=== PATIENT | male | born 1980 | race Caucasian/White ===

== ENCOUNTER 2018-10-12 22:22 | Observation (INO) | payer OTHER ==
[2018-10-12 23:49] LABS: ADD MAN DIFF? NO
[2018-10-12 23:51] LABS: BASOPHILS % 0.5 % (0.0-2.0); EOSINOPHILS # 0.3 10^3/ul (0.0-0.5); EOSINOPHILS % 3.1 % (0.0-7.0); HEMATOCRIT 43.9 % (42.0-52.0); HEMOGLOBIN 14.8 g/dl (14.0-18.0); LYMPHOCYTES # 2.7 10^3/ul (0.8-2.9); LYMPHOCYTES % 32.3 % (15.0-51.0); MEAN CORPUSCULAR HEMOGLOBIN 29.2 pg (29.0-33.0); MEAN CORPUSCULAR HGB CONC 33.7 g/dl (32.0-37.0); MEAN CORPUSCULAR VOLUME 86.6 fl (82.0-101.0); MEAN PLATELET VOLUME 9.5 fl (7.4-10.4); MONOCYTE # 0.8 10^3/ul (0.3-0.9); MONOCYTES % 9.3 % (0.0-11.0); NEUTROPHIL # 4.6 10^3/ul (1.6-7.5); NEUTROPHILS % 54.3 % (39.0-77.0); PLATELET COUNT 237 10^3/UL (140-415); RED BLOOD COUNT 5.07 10^6/ul (4.70-6.10); RED CELL DISTRIBUTION WIDTH 12.4 % (11.5-14.5)
[2018-10-12 23:51] LABS: WHITE BLOOD COUNT 8.5 10^3/ul (4.8-10.8)
[2018-10-12 23:58] LABS: ADD UMIC YES; UR ASCORBIC ACID NEGATIVE (NEGATIVE); UR BILIRUBIN (Dip) NEGATIVE (NEGATIVE); UR BLOOD (Dip) 1+ mg/dL (NEGATIVE); UR CLARITY CLEAR (CLEAR); UR COLOR YELLOW (YELLOW); UR GLUCOSE (Dip) NEGATIVE (NEGATIVE); UR KETONES (Dip) NEGATIVE (NEGATIVE); UR LEUKOCYTE ESTERASE (Dip) NEGATIVE Leu/ul (NEGATIVE); UR NITRITE (Dip) NEGATIVE (NEGATIVE); UR RBC 2 /HPF (0-5); UR SPECIFIC GRAVITY (Dip) 1.025 (1.003-1.030); UR TOTAL PROTEIN (Dip) NEGATIVE (NEGATIVE); UR UROBILINOGEN (Dip) NEGATIVE (NEGATIVE); UR WBC 1 /HPF (0-5)
[2018-10-13] MEDS: SOD CHLORIDE 0.9% 500 ML IV (00:03)
[2018-10-13 00:12] LABS: INR 0.97
[2018-10-13 00:13] LABS: PARTIAL THROMBOPLASTIN TIME 27.5 Sec (23.0-35.0)
[2018-10-13 00:14] LABS: ALANINE AMINOTRANSFERASE 53 IU/L (13-69); ALBUMIN 4.5 g/dl (3.3-4.9); ALBUMIN/GLOBULIN RATIO 1.25; ALKALINE PHOSPHATASE 87 IU/L (42-121); ANION GAP 7 (5-13); ASPARTATE AMINO TRANSFERASE 38 IU/L (15-46); BILIRUBIN,INDIRECT 0.2 mg/dl (0-1.1); BILIRUBIN,TOTAL 0.2 mg/dl (0.2-1.3); BLOOD UREA NITROGEN 15 mg/dl (7-20); CALCIUM 9.6 mg/dl (8.4-10.2); CARBON DIOXIDE 27 mmol/L (21-31); CHLORIDE 107 mmol/L (97-110); CREATININE 0.84 mg/dl (0.61-1.24); Estimated GFR > 60 mL/min (>60); GLUCOSE 96 mg/dl (70-220); LIPASE 79 U/L (23-300); SODIUM 141 mmol/L (135-144); TOTAL PROTEIN 8.1 g/dl (6.1-8.1)
[2018-10-13] MEDS: ONDANSETRON 4 MG INJ IV (00:50)
[2018-10-13] MEDS: morphine 4 MG/ML VIAL IV (00:50)
[2018-10-13] MEDS ORDERED: morphine 2 MG INJ IV (06:00)
[2018-10-13] MEDS ORDERED: ACETAMINOPHEN 325 MG TAB PO (06:00)
[2018-10-13] MEDS ORDERED: ONDANSETRON 4 MG INJ IV (06:00)
[2018-10-13] MEDS: NACL 0.9% 3 ML SYG IV (06:22)
[2018-10-13] MEDS: SOD CHLORIDE 0.9% 1,000 ML IV ×2 (06:24→18:07)
[2018-10-13 06:34] LABS: ADD MAN DIFF? NO
[2018-10-13 06:44] LABS: BASOPHILS % 0.4 % (0.0-2.0); EOSINOPHILS # 0.3 10^3/ul (0.0-0.5); EOSINOPHILS % 3.5 % (0.0-7.0); HEMATOCRIT 42.1 % (42.0-52.0); LYMPHOCYTES # 3.1 10^3/ul (0.8-2.9); LYMPHOCYTES % 41.1 % (15.0-51.0); MEAN CORPUSCULAR HEMOGLOBIN 29.5 pg (29.0-33.0); MEAN CORPUSCULAR HGB CONC 33.3 g/dl (32.0-37.0); MEAN CORPUSCULAR VOLUME 88.8 fl (82.0-101.0); MEAN PLATELET VOLUME 9.6 fl (7.4-10.4); MONOCYTE # 0.5 10^3/ul (0.3-0.9); MONOCYTES % 6.3 % (0.0-11.0); NEUTROPHIL # 3.6 10^3/ul (1.6-7.5); NEUTROPHILS % 48.2 % (39.0-77.0); PLATELET COUNT 219 10^3/UL (140-415); RED BLOOD COUNT 4.74 10^6/ul (4.70-6.10); RED CELL DISTRIBUTION WIDTH 12.3 % (11.5-14.5)
[2018-10-13 06:44] LABS: WHITE BLOOD COUNT 7.5 10^3/ul (4.8-10.8)
[2018-10-13 07:16] LABS: ALANINE AMINOTRANSFERASE 49 IU/L (13-69); ALBUMIN 4.2 g/dl (3.3-4.9); ALBUMIN/GLOBULIN RATIO 1.31; ALKALINE PHOSPHATASE 79 IU/L (42-121); ANION GAP 8 (5-13); ASPARTATE AMINO TRANSFERASE 41 IU/L (15-46); BILIRUBIN,INDIRECT 0.2 mg/dl (0-1.1); BILIRUBIN,TOTAL 0.2 mg/dl (0.2-1.3); BLOOD UREA NITROGEN 16 mg/dl (7-20); CALCIUM 9.7 mg/dl (8.4-10.2); CARBON DIOXIDE 26 mmol/L (21-31); CHLORIDE 106 mmol/L (97-110); CREATININE 0.86 mg/dl (0.61-1.24); Estimated GFR > 60 mL/min (>60); GLUCOSE 91 mg/dl (70-220); SODIUM 140 mmol/L (135-144); TOTAL PROTEIN 7.4 g/dl (6.1-8.1)
[2018-10-13 11:29] LABS: ADD MAN DIFF? NO
[2018-10-13 11:31] LABS: BASOPHILS % 0.4 % (0.0-2.0); EOSINOPHILS # 0.2 10^3/ul (0.0-0.5); EOSINOPHILS % 3.2 % (0.0-7.0); HEMATOCRIT 42.6 % (42.0-52.0); HEMOGLOBIN 14.1 g/dl (14.0-18.0); LYMPHOCYTES # 2.6 10^3/ul (0.8-2.9); LYMPHOCYTES % 36.7 % (15.0-51.0); MEAN CORPUSCULAR HEMOGLOBIN 29.2 pg (29.0-33.0); MEAN CORPUSCULAR HGB CONC 33.1 g/dl (32.0-37.0); MEAN CORPUSCULAR VOLUME 88.2 fl (82.0-101.0); MEAN PLATELET VOLUME 9.4 fl (7.4-10.4); MONOCYTE # 0.5 10^3/ul (0.3-0.9); MONOCYTES % 6.7 % (0.0-11.0); NEUTROPHIL # 3.7 10^3/ul (1.6-7.5); NEUTROPHILS % 52.4 % (39.0-77.0); PLATELET COUNT 217 10^3/UL (140-415); RED BLOOD COUNT 4.83 10^6/ul (4.70-6.10); RED CELL DISTRIBUTION WIDTH 12.3 % (11.5-14.5)
[2018-10-13 11:31] LABS: WHITE BLOOD COUNT 7.1 10^3/ul (4.8-10.8)
[2018-10-13] MEDS: BISACODYL (EC) 5 MG TAB PO (15:53)
[2018-10-13] MEDS: MAGNESIUM CITRATE 300 ML BTL PO (17:18)
[2018-10-13] MEDS: POLYETHYLENE GLYCOL 3350 119 GM POWDER PO (18:07)
[2018-10-13 18:17] LABS: ADD MAN DIFF? NO
[2018-10-13 18:19] LABS: BASOPHILS % 0.3 % (0.0-2.0); EOSINOPHILS # 0.2 10^3/ul (0.0-0.5); EOSINOPHILS % 2.8 % (0.0-7.0); HEMATOCRIT 44.1 % (42.0-52.0); HEMOGLOBIN 14.4 g/dl (14.0-18.0); LYMPHOCYTES # 2.1 10^3/ul (0.8-2.9); LYMPHOCYTES % 33.9 % (15.0-51.0); MEAN CORPUSCULAR HEMOGLOBIN 28.9 pg (29.0-33.0); MEAN CORPUSCULAR HGB CONC 32.7 g/dl (32.0-37.0); MEAN CORPUSCULAR VOLUME 88.6 fl (82.0-101.0); MEAN PLATELET VOLUME 9.7 fl (7.4-10.4); MONOCYTE # 0.4 10^3/ul (0.3-0.9); MONOCYTES % 6.2 % (0.0-11.0); NEUTROPHIL # 3.5 10^3/ul (1.6-7.5); NEUTROPHILS % 56.5 % (39.0-77.0); PLATELET COUNT 228 10^3/UL (140-415); RED BLOOD COUNT 4.98 10^6/ul (4.70-6.10); RED CELL DISTRIBUTION WIDTH 12.5 % (11.5-14.5)
[2018-10-13 18:19] LABS: WHITE BLOOD COUNT 6.1 10^3/ul (4.8-10.8)
[2018-10-14] MEDS: POLYETHYLENE GLYCOL 3350 119 GM POWDER PO (05:55)
[2018-10-14] MEDS: SOD CHLORIDE 0.9% 1,000 ML IV ×3 (05:55→20:29)
[2018-10-14] MEDS: BISACODYL (EC) 5 MG TAB PO (08:17)
[2018-10-14 08:26] LABS: MAGNESIUM 2.2 mg/dl (1.7-2.5)
[2018-10-14 08:26] LABS: CHOL/HDL RATIO 3.8 RATIO; CHOLESTEROL 159 mg/dl (100-200); HDL CHOLESTEROL 41 mg/dl (28-63); LDL CHOLESTEROL,CALCULATED 87 mg/dl; TRIGLYCERIDES 153 mg/dl (0-149)
[2018-10-14 08:33] LABS: HEMOGLOBIN A1C 5.5 % (0-5.9)
[2018-10-14] MEDS ORDERED: LIDOCAINE 2% (SDV) 5 ML INJ (17:56)
[2018-10-14] MEDS ORDERED: PROPOFOL 80 ML (17:56)
[2018-10-14] MEDS ORDERED: hydrALAzine 20 MG INJ IV (18:00)
[2018-10-14] MEDS ORDERED: ONDANSETRON 4 MG INJ IV (18:00)
[2018-10-14] MEDS ORDERED: LABETALOL HCL 20MG INJ IV (18:00)
[2018-10-14] MEDS ORDERED: EPHEDrine SULFATE 50 MG/5 ML SYG IV (18:00)
[2018-10-14] MEDS ORDERED: FENTAnyl 50 MCG/ML VIAL IV ×2 (18:00)
[2018-10-15] MEDS: PANTOPRAZOLE (EC) 40 MG TAB PO (06:23)
[2018-10-15] MEDS: SOD CHLORIDE 0.9% 1,000 ML IV (09:21)
== END 2018-10-15 16:00 | disposition home or self-care (01) ==
LOC: E/R 22:22 → 2NE 10-13 05:40
DX: K29.50 Unspecified chronic gastritis without bleeding (principal); K21.0 Gastro-esophageal reflux disease with esophagitis; K64.8 Other hemorrhoids; K92.2 Gastrointestinal hemorrhage, unspecified; I10 Essential (primary) hypertension; K76.0 Fatty (change of) liver, not elsewhere classified; R73.03 Prediabetes; E66.9 Obesity, unspecified; Z68.34 Body mass index [BMI] 34.0-34.9, adult; K57.30 Diverticulosis of large intestine without perforation or abscess without bleeding
CPT/HCPCS: 43239; 71045; 74176; 80053; 80061; 81001; 83036; 83690; 83735; 84443; 85025; 85610; 85730; 88305; 88312